=== PATIENT | female | born 1945 | race Caucasian/White ===

== ENCOUNTER 2017-02-04 14:09 | Observation (INO) ==
[2017-02-04] MEDS: SALINE FLUSH 10ml SYRINGE IVF PRN ×2 (14:37→17:52)
--- NOTE | 2017-02-04 14:44 | Emergency Department Report ---
Abdominal Pain HPI - General Chief Complaint: Fever Stated Complaint: fever Time Seen by Provider: 02/04/17 14:15 Source: patient Mode of arrival: ambulatory Limitations: no limitations - History of Present Illness HPI narrative: 71yo woman presents to the ER for evaluation of a fever. Pt was seen in this ER yesterday and diagnosed with cholelithiasis/choledocholithiasis. Pt has no s/s of infection at that time and was discharged with good precautions for RTC and outpt f/u with Gen Surg. Last night, pt spiked a temp to 100'F; pt took tylenol for the fever and norco for the pain. Today, pt has not required pain meds, but has had a temp to 101' F. Pt contact PCM, who recommended presentation to the ER for further eval. MD complaint: abdominal pain Location: RUQ Severity: moderate Relieving factors: medication, rest Exacerbating factors: eating, movement Context: history of similar episodes Associated symptoms: fever Treatments prior to arrival: NSAIDs, prescription analgesics - Related Data Home Medications Medication Instructions Recorded Confirmed Cetirizine HCl 10 mg PO DAILY #0 01/22/13 02/04/17 diphenhydrAMINE HCl [Benadryl] 25 mg PO PRN #0 10/30/13 02/04/17 Aspirin 81 mg PO DAILY 02/04/17 02/04/17 NIFEdipine [Nifedipine ER] 60 mg PO DAILY 02/04/17 02/04/17 [place]-3 Fatty Acids/Fish Oil [Fish 1 each PO Q2D 02/04/17 02/04/17 Oil 1,000 mg Softgel] Ondansetron [Zofran Odt] 4 mg PO Q6HR PRN 02/04/17 02/04/17 Previous Rx's Medication Instructions Recorded Hydrocodone/APAP 5/325 [[place] 1 tab PO Q6HPRN PRN #20 tab 02/03/17 5/325] Allergies Allergy/AdvReac Type Severity Reaction Status Date / Time Iodinated Contrast- Oral and Allergy Unknown Rash Verified 02/04/17 14:22 IV Dye PFSH Patient Stated Medical History Hypertension Yes Other GI Yes: GALL STONES Hx Kidney Stones Yes Other Infectious Yes: MELANOMA Now No Medical History Updates: Cholelithiasis. Cholecystitis - Social History Smoking status: Never smoker Course - Consultations Consultation #1: Dr. Kilgore: Will present to the ER for further evaluation and to determine whether to cut tonight. Requests pt be admitted to [facility] as outpt. Will place more orders when she is transferred. Time: 15:18 Vital Signs Temperature 99.1 F 02/04/17 14:12 Pulse Rate 98 02/04/17 14:12 Respiratory Rate 16 02/04/17 14:12 Blood Pressure 134/61 02/04/17 14:12 Pulse Oximetry 95 02/04/17 14:12 Temperature 99.1 F 02/04/17 14:12 Pulse Rate 98 02/04/17 14:12 Respiratory Rate 16 02/04/17 14:12 Blood Pressure 134/61 02/04/17 14:12 Pulse Oximetry 95 02/04/17 14:12 Abdominal Pain - Differential Diagnosis Differential diagnosis: Likely: abdominal pain, calculus of kidney, constipation , diverticulitis, gastroenteritis, pancreatitis (Cholecystitis) - Medical Records Attestation: I reviewed the patient's medical records. - Lab Data Attestation: I reviewed the patient's lab results. Result diagrams: 02/04/17 14:35 02/04/17 14:35 Disposition Clinical Impression: Cholecystitis, acute with cholelithiasis Qualifiers: Cholelithiasis location: gallbladder and bile duct Biliary obstruction: with biliary obstruction Qualified Code(s): K80.63 - Calculus of gallbladder and bile duct with acute cholecystitis with obstruction Disposition: 02 To [facility] Prescriptions: No Action diphenhydrAMINE HCl [Benadryl] 25 mg PO PRN #0 Hydrocodone/APAP 5/325 [[place] 5/325] 1 tab PO Q6HPRN PRN #20 tab PRN Reason: Pain [place]-3 Fatty Acids/Fish Oil [Fish Oil 1,000 mg Softgel] 1 each PO Q2D Cetirizine HCl 10 mg PO DAILY #0 NIFEdipine [Nifedipine ER] 60 mg PO DAILY Ondansetron [Zofran Odt] 4 mg PO Q6HR PRN PRN Reason: Nausea Aspirin 81 mg PO DAILY Referrals: Sean Childs MD [Family Provider] - Time of Disposition: 15:30 - Seen By: physician
[2017-02-04] MEDS ORDERED: ERTAPENEM 1 G in NS 100 ML IV ONE (15:02)
[2017-02-04] MEDS ORDERED: MORPHINE SULFATE 2 MG SYRINGE IM ONE (15:27)
[2017-02-04 16:12] VITALS: BMI 32.3
[2017-02-04] MEDS ORDERED: MORPHINE SULFATE 2 MG SYRINGE IVP ONE (16:16)
[2017-02-04] MEDS ORDERED: METOCLOPRAMIDE 10mg/2ml INJECTION IVP PRN ×2 (17:27→19:12)
[2017-02-04] MEDS ORDERED: HYDROMORPHONE 2 MG/ML INJECTION IVP PRN ×2 (17:27→19:12)
[2017-02-04] MEDS ORDERED: ONDANSETRON 4 MG/2 ML INJECTION IVP PRN ×2 (17:27→19:12)
[2017-02-04] MEDS ORDERED: PROPOFOL 20 ML ONE (17:42)
[2017-02-04] MEDS ORDERED: LIDOCAINE 2% (100mg/5mL) PF 5ml vl ONE (17:43)
[2017-02-04] MEDS ORDERED: ROCURONIUM 50 MG/5 ML INJECTION IVP ONE (17:44)
[2017-02-04] MEDS ORDERED: SUCCINYLCHOLINE 20mg/mL 10mL INJECTION ONE (17:44)
[2017-02-04] MEDS ORDERED: FentaNYL 100 MCG/2 ML INJECTION ONE (17:46)
--- NOTE | 2017-02-04 17:47 | Anesthesia Preoperative Report ---
Anesthesia Preoperative Record - Date and Time Date: 02/04/17 Preoperative Diagnosis: Cholecystitis Proposed Procedure: Lap Ethel NPO Since Date: 02/04/17 NPO Since Time: 11:00 Allergies/Adverse Reactions: Allergies Allergy/AdvReac Type Severity Reaction Status Date / Time Iodinated Contrast- Oral and Allergy Unknown Rash Verified 02/04/17 14:22 IV Dye - Vital Signs Vital Signs: Temperature 97.0 F 02/04/17 16:16 Pulse Rate 94 02/04/17 16:16 Respiratory Rate 16 02/04/17 16:16 Blood Pressure 132/69 02/04/17 16:16 Pulse Oximetry 93 02/04/17 16:16 Oxygen Delivery Method Room Air Height and Weight: Height 1.68 m Weight 90.7 kg Body Mass Index 32.3 - Medications Inpatient Medications: Current Medications Hydromorphone HCl (Dilaudid) 0.2 - 1 mg IVP Q2H PRN PRN Reason: Pain Lactated Ringer's (Lactated Ringers) 1,000 mls @ 125 mls/hr IV .Q8H JOSSELYN Metoclopramide HCl (Reglan) 10 mg IVP Q6H PRN Ondansetron HCl (Zofran) 4 mg IVP Q6H PRN PRN Reason: Nausea &/or vomiting Sodium Chloride (Iv Flush) 10 - 80 ml IVF PRN PRN PRN Reason: Flushing Last Admin: 02/04/17 14:37 Dose: 10 ml Home Medications: Home Medications Medication Instructions Recorded Confirmed Type Cetirizine HCl 10 mg PO DAILY #0 01/22/13 02/04/17 History diphenhydrAMINE HCl [Benadryl] 25 mg PO PRN #0 10/30/13 02/04/17 History Aspirin 81 mg PO DAILY 02/04/17 02/04/17 History NIFEdipine [Nifedipine ER] 60 mg PO DAILY 02/04/17 02/04/17 History [place]-3 Fatty Acids/Fish Oil [Fish 1 each PO Q2D 02/04/17 02/04/17 History Oil 1,000 mg Softgel] Ondansetron [Zofran Odt] 4 mg PO Q6HR PRN 02/04/17 02/04/17 History Is Patient on Beta Farnaz?: No - Medical History Cardiovascular: Reports: Hypertension - Surgical History GI Surgery/Treatments: Reports: Appendectomy Surgery/Treatment: REPORT: Other (URETER REPAIR AFTER HYSTERECTOMY) Reproductive Surgery/Treatment: Reports: Hysterectomy Anesthesia Reactions: None Hx Family Anesthesia Reaction: No History of Motion Sickness: No - Social History Smoking Status: Never smoker Hx Chewing Tobacco Use: No Second Hand Exposure: No Substance Use Type: does not use Alcohol Intake Frequency: does not drink - Pertinent Findings EKG Rhythm: Normal Sinus Rhythm - Physical Exam Respiratory Exam: Present: lungs clear Cardiovascular Exam: Present: regular rate and rhythm - Airway Assessment Mallampati Score: II TMD: 3 Fingerbreadths Teeth: patial upper dentures, partial lower dentures Overall Assessment: no airway concerns - ASA ASA Score: 2, E - Plan Anesthesia: General Inhalation Gases - Discussion Discussion: Discussed risks/options/alternatives of anesthesia and questions answered. Patient consents. Nursing pain assessment noted. Present for Discussion: family member Attestation Statement: Prior to the delivery of any anesthetic medication, I examined the patient, developed the plan, obtained the patient's consent and discussed the risk and benefits of the procedure with the patient/guardian. - Additional Information Seen by Anesthesia: Yes
[2017-02-04] MEDS: LR 1,000 ML IV SCH ×2 (17:52→20:51)
[2017-02-04] MEDS ORDERED: LIDOCAINE 1% (10mg/ml) 30ml SDV INJ ONE (18:38)
[2017-02-04] MEDS ORDERED: BUPIVACAINE 0.25%/EPI 1:200,000 30ml SDV ONE (18:38)
[2017-02-04] MEDS ORDERED: LIDO 1% 30ml/BUPIV 0.25%-EPI 1:200T 30ml MIXTURE (60ml total) ID ONE (18:51)
[2017-02-04] MEDS ORDERED: DEXAMETHASONE 4 MG/ML INJECTION ONE (19:19)
[2017-02-04] MEDS ORDERED: ONDANSETRON 4 MG/2 ML INJECTION ONE (19:19)
--- NOTE | 2017-02-04 20:48 | Anesthesia Postoperative Note ---
- Date and Time Date: 02/04/17 Time: 20:48 - Status Patient Participated in Evaluation: Patient Participated in Person Vital Signs: Temperature 98.1 F 02/04/17 20:23 Pulse Rate 96 02/04/17 20:23 Respiratory Rate 16 02/04/17 20:23 Blood Pressure 152/67 H 02/04/17 20:23 Pulse Oximetry 96 02/04/17 20:23 Oxygen Delivery Method Simple Mask Oxygen Flow Rate 6 Respiratory Function: Airway Patent Cardiovascular Function: Regular Pulse EKG Rhythm: Normal Sinus Rhythm Mental Status: Alert and Oriented Pain Intensity: 0 Hydration: IV Infusing Complications During Recover: None Apparent - Follow-Up Instructions Instructions: Per Surgeon
--- NOTE | 2017-02-04 20:54 | General Surgery Procedure Note ---
Date of Procedure: 02/04/17 Surgeon: Jame Anesthesia: General Inhalation Gases ASA Score: 2, E Postoperative Diagnosis: Acute cholecystitis Procedure: Laparoscopic cholecystectomy
[2017-02-04] MEDS ORDERED: HYDROCODONE/APAP 5mg/325mg TABLET PO PRN (21:16)
[2017-02-04] MEDS ORDERED: KETOROLAC 30 MG/ML INJECTION IVP PRN (21:16)
[2017-02-04] MEDS ORDERED: DiphenhydrAMINE 25 MG CAPSULE PO SCH (21:16)
[2017-02-05] MEDS: LR 1,000 ML IV SCH ×3 (04:10→13:04)
[2017-02-05] MEDS ORDERED: DiphenhydrAMINE 25 MG CAPSULE PO PRN (06:45)
[2017-02-05 07:15] VITALS: RESP 16
--- NOTE | 2017-02-05 07:15 | History and Physical ---
DATE OF INITIATION OF OBSERVATION SERVICES 02/04/2017 ATTENDING PHYSICIAN Philip Kilgore MD PRIMARY CARE PHYSICIAN Dr. Sean Childs REASON FOR ADMISSION Acute cholecystitis. HISTORY OF PRESENT ILLNESS Tania is a 71-year-old female who had developed abdominal pain two days ago, on Sunday. She said the pain started in her midabdomen and radiated to her back as well as some to the left and the right. She said it was pressure-type pain and it increased up to 8/10 in severity. It started in the morning after she had had bread and butter. Overnight her pain intensified, so she went to the emergency department yesterday morning. She had w workup that included a gallbladder sonogram that had shown cholelithiasis and wall thickening but her white count had been normal at 10.5 and she wanted to try to avoid surgery, so she was dismissed home with [place] tablets. Last evening she developed a fever of 100 degrees. She was using Tylenol to help with the fever. She used one or two of the pain pills. This morning she had her temperature up to 101 degrees, so she called the on-call physician covering for Dr. Childs. They recommended return to the emergency department. She had vomited once on Sunday night but had no other significant symptoms. After receiving morphine for pain control, her pain has decreased to 3-4/10 in severity. PAST MEDICAL HISTORY 1. Melanoma of the left leg status post excision (negative lymph node involvement). 2. Hypertension. 3. Cholelithiasis - diagnosed 30 years ago but never had surgical management. 4. 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 5. Seasonal allergies. 6. Hepatitis (foodborne) in the . PAST SURGICAL HISTORY 1. Wide local excision of the left posterior leg with left inguinal lymph node dissection. 2. Open abdominal hysterectomy and bilateral salpingo-oophorectomy - 1984. The procedure was complicated by ligation of the ureter. 3. Ureter repair - 1984. 4. Open appendectomy - 02/21. 5. Inguinal hernia repair - age 5. ALLERGIES Iodinated contrast which causes itching. MEDICATIONS The patient's home medications were reviewed. See the admission medical reconciliation. FAMILY HISTORY The patient's mother of a stroke. She also had lung cancer. The patient's father of a stroke. She had a brother who is and had a history of lung cancer. SOCIAL HISTORY The patient is since May 2016. She had been for 50 years. She has two daughters. She is a never smoker. She denies alcohol or illicit drug use. 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 REVIEW OF SYSTEMS 10-point review of systems was negative except for history of present illness and the following: NEUROLOGIC: She reported some headache but it was mild. HEMATOLOGIC/LYMPHATIC: She does use aspirin and fish oil. She has chronic left lower extremity swelling. PHYSICAL EXAMINATION VITAL SIGNS: Temperature 97.0. Pulse 94. Blood pressure 132/69. Respiratory rate 16. Oxygen saturation 93% on room air. GENERAL: The patient is awake, alert, in no acute distress. HEENT: Sclerae clear. Extraocular muscles intact. NECK: Supple with a midline trachea. No lymphadenopathy or thyromegaly are noted. HEART: Regular rate and rhythm. LUNGS: Clear to auscultation bilaterally. ABDOMEN: Soft, minimally tender, nondistended. No masses, fluid, organomegaly , guarding or rebound are noted. EXTREMITIES: No clubbing, cyanosis or edema. NEURO: Cranial nerves II-XII are grossly intact. PSYCHIATRIC: Normal mood and affect. IMAGING Gallbladder sonogram showed cholelithiasis including a 2 cm stone in the neck of the gallbladder. There was wall thickening that was greater than 4 mm. Reportedly a sonographic Maxwell's sign was positive on imaging yesterday. LABORATORY DATA White blood cell count is increased from 10.5 to 20. Total bilirubin increased from 1.0 to 2.0. Lipase has remained normal. IMPRESSION 1. Acute cholecystitis. 2. Hypertension - chronic. PLAN 1. After evaluation of the patient and review of the imaging reports, I do feel that she has acute cholecystitis which is in need of surgical management. I discussed the option of nonoperative management with IV antibiotics, but following discussion the patient wish to proceed with surgery. 2. The patient has already received a dose of IV Invanz. 3. NPO. 4. IV fluids. 5. SCDs to bilateral lower extremities. PATIENT EDUCATION The details, risks and benefits of surgery were discussed with the patient and her daughter who was present throughout the discussion. The discussion included , but was not limited to bleeding, infection, bile leak, injury to intraabdominal structures including the common bile duct possibly requiring additional procedures, conversion to an open procedure, complications of anesthesia, and possible retained stones. I did discuss the typical use of cholangiogram but the desire to avoid cholangiogram based on her allergy to iodine contrast. JUVENAL
[2017-02-05] MEDS ORDERED: --POM--NIFEdipine XL 60 MG TABLET PO SCH (09:00)
[2017-02-05] MEDS ORDERED: CETIRIZINE 10 MG TABLET PO SCH (09:00)
[2017-02-05] MEDS: SALINE FLUSH 10ml SYRINGE IVF PRN (09:09)
--- NOTE | 2017-02-05 10:14 | Operative Note ---
DATE OF OPERATION 02/04/2017 SURGEON Philip Kilgore MD PREOPERATIVE DIAGNOSIS Acute cholecystitis. POSTOPERATIVE DIAGNOSIS Acute cholecystitis. PROCEDURE Laparoscopic cholecystectomy. ANESTHESIA General ASA CLASS 2E INDICATIONS The patient is a 71-year-old female with a 30-year history of cholelithiasis. She developed upper abdominal pain two nights ago and presented to the emergency department yesterday. She had had a normal white count and so, despite a gallbladder sonogram that had shown some wall thickening, she had elected to avoid surgery and was dismissed home from the emergency department. She then developed fevers and came back to the emergency department today. Given the new fevers and the fact that her white count had gone up to 20,000, it was felt that she should have her gallbladder removed. FINDINGS There was hydrops of the gallbladder along with some possibly purulent material within the gallbladder itself. The gallbladder did appear acutely inflamed and perhaps had areas of necrosis. A critical view of safety was able to be achieved. Cholangiogram was not attempted given the patient's iodine allergy. DESCRIPTION OF PROCEDURE After informed consent was obtained the patient was taken to the operating room , placed in supine position. General anesthesia was administered by the anesthesia team. The patient's abdomen was then prepped and draped in usual sterile fashion. Local was injected beneath the umbilicus and a small skin incision was made. The base of the umbilicus was elevated with a Olive clamp and a Veress needle was inserted and was used to obtain pneumoperitoneum. A 5 mm port was inserted followed by an angled laparoscope. The laparoscope was used to guide placement of two additional 5 mm ports in the right upper quadrant after the skin and fascia were anesthetized with local. A final 10 mm port was placed in the subxiphoid region after the skin and fascia were anesthetized with local. All of the ports were placed under direct vision. The gallbladder was then elevated with instruments and omental adhesions to the body of the gallbladder were taken down using cautery. After the gallbladder was adequately mobilized, some omental adhesions to the undersurface of the liver were also taken down with cautery. At this point, the gallbladder was decompressed using a laparoscopic aspiration needle. A ratcheted toothed grasper was used to close the hole of the aspiration site. Some of the aspirated bile was sent for gram stain and culture. With the gallbladder partially decompressed, additional dissection could be performed in the area of the infundibulum. The peritoneum was taken down using cautery. Combination of electrocautery and blunt dissection was used to dissect out the cystic duct and cystic artery. The artery was triply clipped as well as the cystic duct. The duct was divided between the two proximal clips and the artery between the two distal clips. The gallbladder was then taken off of the liver in a retrograde fashion using cautery. It was placed within an endoscopic retrieval bag. It was removed from the subxiphoid port site. The skin incision had to be enlarged and the fascial incision had to be stretched to facilitate delivery of the gallbladder. Within the endoscopic retrieval bag, the gallbladder was also opened and some of the stones within the gallbladder were crushed to facilitate delivery. With the gallbladder removed it, was sent to pathology. The port was reinserted and the skin was closed with a penetrating towel clip to allow re -establishment of the pneumoperitoneum. The right upper quadrant was irrigated and suctioned free of fluid. No bleeding was noted within the gallbladder fossa or the omentum that had been adherent to the gallbladder. The right upper quadrant ports were removed under direct vision. The fascia of the subxiphoid port site was closed with a running 0 Vicryl suture. The skin incisions were then all closed with buried interrupted 4-0 Monocryl stitches. The subxiphoid port site had been a subcuticular stitch. Benzoin, Steri-Strips and sterile bandages were applied as a dressing. JUVENAL
[2017-02-05] MEDS ORDERED: ERTAPENEM 1 G INJECTION IV ONE (15:19)
[2017-02-05] MEDS ORDERED: ERTAPENEM 1 G in NS 100 ML IV ONE (15:30)
--- NOTE | 2017-02-05 15:45 | Discharge Instructions ---
Discharge Plan - Med Rec/Dispo Prescriptions: New Amoxicillin/Potassium Clav [Amox-Clav 875-125 mg Tablet] 1 each PO Q12HR #14 tablet Continue diphenhydrAMINE HCl [Benadryl] 25 mg PO PRN #0 Hydrocodone/APAP 5/325 [[place] 5/325] 1 tab PO Q6HPRN PRN #20 tab PRN Reason: Pain [place]-3 Fatty Acids/Fish Oil [Fish Oil 1,000 mg Softgel] 1 each PO Q2D Cetirizine HCl 10 mg PO DAILY #0 NIFEdipine [Nifedipine ER] 60 mg PO DAILY Ondansetron [Zofran Odt] 4 mg PO Q6HR PRN PRN Reason: Nausea Aspirin 81 mg PO DAILY - Disposition 01 Discharged Home, Self-Care
[2017-02-05 16:09] VITALS: BP 131/67; PULSE 88; TEMP 97.5; O2SAT 92
--- NOTE | 2017-02-06 11:57 | Progress Note ---
DATE OF VISIT 02/05/2017 REASON FOR VISIT Postoperative followup. SUBJECTIVE Tania has done very well since surgery. She is not using pain medication at this point. She is tolerating a clear liquid diet well. She has some incisional pain but feels it is minimal. OBJECTIVE Afebrile with stable vitals on room air. GENERAL: The patient is awake, alert, in no acute distress. ABDOMEN: Soft, appropriately tender. Her bandages are clean, dry and intact. ASSESSMENT 1. Postop day #1 status post laparoscopic cholecystectomy for acute cholecystitis. 2. Hypertension - chronic, stable. 3. Seasonal allergies - chronic, stable. PLAN 1. Advance to regular diet. 2. Given the organisms seen on gram stain from her gallbladder aspirate, I will leave her on antibiotics at dismissal. I gave her another dose of Invanz today and she will be sent home with a week's course of Augmentin to be started tomorrow. 2. See other discharge instructions. The postoperative care was reviewed with the patient. She was ready for dismissal. JUVENAL
== END 2017-02-05 17:35 | disposition home or self-care (01) ==
LOC: ED 14:09 → SRG 14:09
PROVIDERS: ADMIT Surgery; ATTEND Surgery